=== PATIENT | female | born 2000 | race Two or more races ===

== ENCOUNTER 2022-12-28 18:06 | Emergency (ER) | payer OTHER ==
[~2022-12-28] VITALS: Ht 154.9 cm; Wt 86.2 kg
[2022-12-28] MEDS ORDERED: INTESTINEX680 M1 PO (22:01)
[2022-12-28] MEDS ORDERED: PEPCID AC20 MG PO (22:01)
== END 2022-12-28 22:25 | disposition home or self-care (01) ==
LOC: ER 18:06
DX: R19.7 Diarrhea, unspecified (principal); Z20.822 Contact with and (suspected) exposure to COVID-19